=== PATIENT | female | born 1955 | race Caucasian/White ===

== ENCOUNTER → 2017-08-14 | Day surgery (SDC) | payer OTHER ==
[~2017-08-14] VITALS: Ht 165.1 cm; Wt 84.8 kg
[~2017-08-14] MED LIST: ALBUTEROL0.09 MG/A1 INH; ALPRAZOLAM0.5 M4 PO; ASPIRIN EC325 MG PO; BIOTIN2500 MCG PO; CIPRO500 M1 PO; DIFLUCAN150 M1 PO; DILAUDID2 MG PO; FLOMAX(MONOGRA0.4 MG PO; FLOMAX0.4 M1 PO; NICOTINE PATCH1 EAC2 TOP; ONDANSETRON4 MG/2 M3 PO; PERCOCET 325 MG1 TAB PO; PERCOCET 5-3251 EACH PO; PREDNISONE 20MG20 MG PO; PROAIR HFA8.5 GM INH; RESTASIS 0.4 M0.4 ML OPH; VALIUM10 M1 PO; ZOFRAN ODT4 M1 SL
--- NOTE | 2017-08-14 13:59 | Operative Report ---
Operative/Inv Procedure Report Surgery Date: 08/14/17 Name of Procedure: left ESW: with fluoroscopy Pre-Operative Diagnosis: left renal colic with stonel Post-Operative Diagnosis: same Estimated Blood Loss: none Surgeon/Pharmacy Student: Ajay Holden MD Anesthesia: moderate sedation Specimens: none Complications: aylin Operative/Procedure Note Note: The patient was taken to the operating room and placed on the ESWL table in supine position. With the patient awake, timeout was performed to confirm correct identity, procedure, laterality, anesthesia, and other pertinent jd- operative information. After adequate anesthesia, the patient was positioned so that the patient's left flank was positioned over the table cut-out, overlying the dome of the treatment head. Once the patient was adequately sedated, fluoroscopy, as well as Renal ultrasound was used to locate the LEFT renal stone. Renal US confirmed the presence of the stone which measured it to be approximately 6 mm upper pole stone. The stone was visible with fluoroscopy. Renal US revealed, no hydronephrosis, and no solid tumor, and presence of the stone. The position of the stone was optimized by using fluoroscopy in AP and oblique views;placing the stone within the ESWL c-arm crosshairs. Once the stone's position was optimized , the LEFT renal E.S.W.L. was initiated at low energy level. After noting the patient's tolerance to the shockwaves, the intensitiy was ramped up to maximum level. At the end of the procedure, the left renal stone had dissintegrated. Of note, a total of 2500 shockwaves were delivered to the stone. The patient tolerated the ESWL procedures well, was awakened, then taken to recovery in satisfactory condition via stretcher. The patient was dischared home with pain medications, diet orders, and intructions to catch fragments by straining the urine. The patient to to have follow-up renal ultrasound and KUB in 1 to 2 weeks, prior to follow-up visit in my office. He will then proceed with metabolic stone work-up. Discharge Disposition: Same Day Admissions CC: Ajay Holden MD
== END ==
LOC: STS 02:13
DX: N20.0 Calculus of kidney (principal)
CPT/HCPCS: 93005; 93010; J2250